=== PATIENT | male | born 1970 | race Caucasian/White ===

== ENCOUNTER 2020-10-22 13:21 | Emergency (ER) | payer BC ==
[2020-10-22] MEDS ORDERED: Sodium Chloride 0.9% 10 ML Syringe FLUSH PRN (15:31)
[2020-10-22] MEDS ORDERED: Butorphanol 2 MG/ML SDV IVPUSH ONE (15:31)
[2020-10-22] MEDS ORDERED: Ketorolac 30 MG/ML SDV IVPUSH ONE (15:31)
[2020-10-22 16:16] LABS: ANION GAP 11.9 mEq/L (7-13); CHLORIDE,CL 102 mmol/L (98-107); SODIUM,NA 140 mmol/L (136-145)
--- NOTE | 2020-10-22 16:16 | CT ---
PROCEDURE INFORMATION: Exam: CT Head Without Contrast Exam date and time: 10/22/2020 4:06 PM Age: 49 years old Clinical indication: Pain; Other: Frontal headache; Additional info: Acute persistent headache, worst ever ROBIN TECHNIQUE: Imaging protocol: Computed tomography of the head without contrast. Radiation optimization: All CT scans at this facility use at least one of these dose optimization techniques: automated exposure control; mA and/or kV adjustment per patient size (includes targeted exams where dose is matched to clinical indication); or iterative reconstruction. COMPARISON: No relevant prior studies available. FINDINGS: Brain: Normal. No hemorrhage. Unremarkable white matter. No mass effect. Cerebral ventricles: No ventriculomegaly. Paranasal sinuses: Fluid or or retention cysts in the bilateral maxillary antra, left worse than right. Mastoid air cells: Visualized mastoid air cells are well aerated. Bones/joints: Unremarkable. No acute fracture. Soft tissues: Unremarkable. IMPRESSION: Fluid or retention cysts in the bilateral maxillary antra. Head CT otherwise normal.
[2020-10-22] MEDS ORDERED: Amoxicillin/Clavulanate K 875-125 MG Tab PO ONE (16:25)
[2020-10-22] MEDS ORDERED: Dexamethasone 4 MG Tab PO ONE (16:26)
--- NOTE | 2020-10-22 16:33 | EDM.PDOC ---
"Scribed by Claire Gomez 10/22/20 [id number] for Mark Maldonado MD ED HPI GENERAL MEDICAL PROBLEM - General Chief Complaint: Headache Stated Complaint: [id number] BAD HEADACHE Time Seen by Provider: 10/22/20 13:50 Source of Information: Reports: Patient, RN, RN Notes Reviewed History Limitations: Reports: No Limitations - History of Present Illness INITIAL COMMENTS - FREE TEXT/NARRATIVE: Patient presents to ED by POV stating he received cortisone shot in right shoulder Oct 05 and Oct 18. Woke up Oct 19 with headache that has progressively gotten worse. Taking Benadryl and Advil no relief. Admits to occ. mild photophobia and nausea. Denies fever, chills, neck pain or rigidity. No Hx of migraines. Onset: Gradual Duration: Constant Location: Reports: Head Quality: Reports: Ache Severity: Severe Improves with: Reports: None Worsens with: Reports: None Associated Symptoms: Reports: No Other Symptoms Head Pain Score (Numeric/FACES): 8 - Related Data Allergies Allergy/AdvReac Type Severity Reaction Status Date / Time No Known Allergies Allergy Verified 10/22/20 13:54 Home Meds: Home Meds Allopurinol [Zyloprim] 300 mg PO 10/22/20 [History] Candesartan [Atacand] 32 mg PO DAILY 10/22/20 [History] Sertraline [Zoloft] 50 mg PO DAILY 10/22/20 [History] atorvaSTATin [Lipitor] 20 mg PO BEDTIME 10/22/20 [History] Past Medical History - Past Health History Medical/Surgical History: Denies Medical/Surgical History Cardiovascular History: Reports: High Cholesterol Musculoskeletal History: Reports: Gout, Other (See Below) Other Musculoskeletal History: shoulder injection on right shoulder Psychiatric History: Reports: Depression Social & Family History - Tobacco Use Tobacco Use Status *Q: Never Tobacco User - Caffeine Use Caffeine Use: Reports: Coffee, Soda - Recreational Drug Use Recreational Drug Use: No ED ROS GENERAL - Review of Systems Review Of Systems: Comprehensive ROS is negative, except as noted in HPI. - Physical Exam Exam: See Below Exam Limited By: No Limitations General Appearance: Alert, WD/WN, No Apparent Distress Eye Exam: Bilateral Eye: EOMI, Normal Fundi, Normal Inspection, PERRL Ears: Normal External Exam, Normal Canal, Hearing Grossly Normal, Normal TMs Nose: No Blood, Other (Inflammed inferior turbinates with small amt. of purulent drainage) Throat/Mouth: Normal Inspection, Normal Lips, Normal Teeth, Normal Gums, Normal Oropharynx, Normal Voice, No Airway Compromise Head Exam: Atraumatic, Normocephalic Neck: Normal Inspection, Supple, Non-Tender, Full Range of Motion, Other (No nuchal rigidity). No: Lymphadenopathy (L), Lymphadenopathy (R) Respiratory/Chest: No Respiratory Distress, Lungs Clear, No Accessory Muscle Use, Chest Non-Tender Cardiovascular: Normal Peripheral Pulses, Regular Rate, Rhythm, No Edema, No Murmur GI/Abdominal: Normal Bowel Sounds, Soft, Non-Tender Neuro Exam (Abbreviated): Alert, Oriented, CN II-XII Intact, Normal Cognition, Normal Gait, Normal Reflexes, No Motor/Sensory Deficits Back Exam: Normal Inspection Extremities: Normal Inspection Psychiatric: Normal Mood Skin Exam: Warm, Dry, Intact, Normal Color, No Rash Course - Vital Signs Last Recorded V/S: Last Vital Signs Temp 98 F 10/22/20 13:49 Pulse 60 10/22/20 16:23 Resp 16 10/22/20 16:23 BP 137/79 10/22/20 16:23 Pulse Ox 97 10/22/20 16:23 - Orders/Labs/Meds Orders: Active Orders 24 hr Category Date Time Status Peripheral IV Care [RC] . DIRECTED Care 10/22/20 15:31 Active Sodium Chloride 0.9% [Saline Flush] Med 10/22/20 15:31 Active 10 ml FLUSH ASDIRECTED PRN Peripheral IV Insertion Adult [OM.PC] Stat Oth 10/22/20 15:31 Ordered Medication Orders Sodium Chloride (Sodium Chloride 0.9% 10 Ml Syringe) 10 ml FLUSH ASDIRECTED PRN PRN Reason: Keep Vein Open Last Admin: 10/22/20 16:22 Dose: 10 ml Documented by: Labs: Laboratory Tests 10/22/20 10/22/20 10/22/20 Range/Units 13:35 15:49 15:49 WBC 12.0 H (5.0-10.0) 10^3/uL RBC 4.83 (4.6-6.2) 10^6/uL Hgb 15.4 (14.0-18.0) g/dL Hct 44.3 (40.0-54.0) % MCV 91.7 (80-100) fL MCH 31.9 (27.0-34.0) pg MCHC 34.8 (33.0-35.0) g/dL Plt Count 303 (150-450) 10^3/uL Neut % (Auto) 67.3 (42.2-75.2) % Lymph % (Auto) 21.2 (20.5-50.1) % [place] % (Auto) 10.4 H (2-8) % Eos % (Auto) 0.7 L (1.0-3.0) % Baso % (Auto) 0.4 (0.0-1.0) % Sodium 140 (136-145) mmol/L Potassium 3.9 (3.5-5.1) mmol/L Chloride 102 (98-107) mmol/L Carbon Dioxide 30 (21-32) mmol/L Anion Gap 11.9 (7-13) mEq/L BUN 16 (7-18) mg/dL Creatinine 1.15 (0.70-1.30) mg/dL Est Cr Clr Drug Dosing 88.70 mL/min Estimated GFR (MDRD) > 60 BUN/Creatinine Ratio 13.9 (No establ ref range) Glucose 86 (70-99) mg/dL Calcium 9.2 (8.5-10.1) mg/dL Total Bilirubin 0.5 (0.2-1.0) mg/dL AST 19 (15-37) U/L ALT 41 (16-63) U/L Alkaline Phosphatase 67 (46-116) U/L C-Reactive Protein < 0.2 (0.0-0.9) mg/dL Total Protein 7.0 (6.4-8.2) g/dL Albumin 3.8 (3.4-5.0) g/dL Globulin 3.2 Albumin/Globulin Ratio 1.2 SARS-CoV-2 RNA (SHIRA) Negative (NEGATIVE) Meds: Medications Generic Name Dose Route Start Last Admin Trade Name Freq PRN Reason Stop Dose Admin Sodium Chloride 10 ml 10/22/20 15:31 10/22/20 16:22 Sodium Chloride 0.9% 10 Ml Syringe FLUSH 10 ml ASDIRECTED PRN Administration Keep Vein Open Discontinued Medications Generic Name Dose Route Start Last Admin Trade Name Freq PRN Reason Stop Dose Admin Amoxicillin/Clavulanate Potassium 1 tab 10/22/20 16:25 Amoxicillin/Clavulanate K 875-125 Mg Tab PO 10/22/20 16:26 ONETIME ONE Butorphanol Tartrate 2 mg 10/22/20 15:31 10/22/20 15:56 Butorphanol 2 Mg/Ml Sdv IVPUSH 10/22/20 15:32 2 mg ONETIME ONE Administration Dexamethasone 4 mg 10/22/20 16:26 Dexamethasone 4 Mg Tab PO 10/22/20 16:27 ONETIME ONE Ketorolac Tromethamine 30 mg 10/22/20 15:31 10/22/20 15:55 Ketorolac 30 Mg/Ml Sdv IVPUSH 10/22/20 15:32 30 mg ONETIME ONE Administration - Radiology Interpretation Free Text/Narrative:: [facility] Final Radiology Report Call: [phone] assistance Online chat: [email or web address] Name: RITO SOLANO Age: 49Years M Date: 10/22/2020 SSN: -- : [id number] Study: CT HEAD WO CONT Requesting Physician: MARK MALDONADO Images: [id number] Addl Studies: Provided Clinical History: acute persistent headache, worst ever ROBIN Contrast: Without Contrast Medium: Contrast Amount: Contrast Method: Page 1 of 2 PROCEDURE INFORMATION: Exam: CT Head Without Contrast Exam date and time: 10/22/2020 4:06 PM Age: 49 years old Clinical indication: Pain; Other: Frontal headache; Additional info: Acute persistent headache, worst ever ROBIN TECHNIQUE: Imaging protocol: Computed tomography of the head without contrast. Radiation optimization: All CT scans at this facility use at least one of these dose optimization techniques: automated exposure control; mA and/or kV adjustment per patient size (includes targeted exams where dose is matched to clinical indication); or iterative reconstruction. COMPARISON: No relevant prior studies available. FINDINGS: Brain: Normal. No hemorrhage. Unremarkable white matter. No mass effect. Cerebral ventricles: No ventriculomegaly. Paranasal sinuses: Fluid or or retention cysts in the bilateral maxillary antra, left worse than right. Mastoid air cells: Visualized mastoid air cells are well aerated. Bones/joints: Unremarkable. No acute fracture. Soft tissues: Unremarkable. IMPRESSION: Fluid or retention cysts in the bilateral maxillary antra. Head CT otherwise normal. Thank you for allowing us to participate in the care of your patient. Dictated and Authenticated by: Dominga Sung MD MEYER, CORY | Final Radiology Report CONFIDENTIALITY STATEMENT This report is intended only for use by the referring physician, and only in accordance with law. If you received this in error, call [phone]. Page 2 of 2 10/22/2020 4:16 PM Central Time ([place]) Departure - Departure Time of Disposition: 16:22 Disposition: Home, Self-Care 01 Condition: Good Clinical Impression: Acute headache Qualifiers: Headache type: unspecified Intractability: intractable Qualified Code(s): R51.9 - Headache, unspecified Maxillary sinusitis Qualifiers: Chronicity: acute Recurrence: non-recurrent Qualified Code(s): J01.00 - Acute maxillary sinusitis, unspecified - Discharge Information *PRESCRIPTION DRUG MONITORING PROGRAM REVIEWED*: Not Applicable *COPY OF PRESCRIPTION DRUG MONITORING REPORT IN PATIENT OSCAR: Not Applicable Instructions: Sinusitis, Adult, Sinus Headache Forms: ED Department Discharge Additional Instructions: Rx: Augmenting 875mg Rx: Decadron 4mg Follow up in clinic in 4 to 5 days if not improving. Sepsis Event Note (ED) - Focused Exam Vital Signs: Vital Signs Temp Pulse Resp BP Pulse Ox 10/22/20 16:23 60 16 137/79 97 10/22/20 13:49 98 F 77 16 178/73 H 98 - My Orders Last 24 Hours: My Active Orders 10/22/20 15:31 Peripheral IV Care [RC] . DIRECTED Sodium Chloride 0.9% [Saline Flush] 10 ml FLUSH ASDIRECTED PRN Peripheral IV Insertion Adult [OM.PC] Stat - Assessment/Plan Last 24 Hours: My Active Orders 10/22/20 15:31 Peripheral IV Care [RC] . DIRECTED Sodium Chloride 0.9% [Saline Flush] 10 ml FLUSH ASDIRECTED PRN Peripheral IV Insertion Adult [OM.PC] Stat I have read and agree with the documentation that has been completed regarding this visit. By signing this record, I attest that the documentation was completed in my physical presence and is an accurate record of the encounter."
== END 2020-10-22 16:43 | disposition home or self-care (01) ==
LOC: DL.ED 13:21
DX: J01.00 Acute maxillary sinusitis, unspecified (principal); M10.9 Gout, unspecified; E78.00 Pure hypercholesterolemia, unspecified; Z79.899 Other long term (current) drug therapy; Z20.822 Contact with and (suspected) exposure to COVID-19
CPT/HCPCS: 36415; 70450; 80053; 85025; 86140; 87635; 96374; 96375; 99284; A9270; J0595; J1885; U0002